=== PATIENT | male | born 1990 | race African-American/Black ===

== ENCOUNTER 2018-10-31 20:47 | Emergency (ER) | payer OTHER ==
[~2018-10-31] VITALS: Ht 170.2 cm; Wt 56.8 kg
[2018-10-31 21:16] VITALS: Ht 170.2 cm; Wt 56.8 kg
[2018-10-31] MEDS ORDERED: TAMIFLU75 MG PO (22:42)
[2018-10-31] MEDS ORDERED: VOLTAREN75 MG PO (22:42)
[2018-10-31] MEDS ORDERED: PHENERGAN DM SYR5 ML PO (22:42)
[2018-10-31 22:47] VITALS: BP 121/79
== END 2018-10-31 22:52 | disposition home or self-care (01) ==
LOC: D.ER 20:47
DX: J09.X2 Influenza due to identified novel influenza A virus with other respiratory manifestations (principal); R50.9 Fever, unspecified

== ENCOUNTER 2018-11-06 19:51 | Emergency (ER) | payer OTHER ==
[~2018-11-06] VITALS: Ht 170.2 cm; Wt 65.9 kg
[~2018-11-06 19:51] MED LIST: PHENERGAN DM SYR5 ML PO; TAMIFLU75 MG PO; VOLTAREN75 MG PO
[2018-11-06 20:16] VITALS: Ht 170.2 cm; Wt 65.9 kg
[2018-11-06 21:47] VITALS: BP 123/85
== END 2018-11-06 21:47 | disposition home or self-care (01) ==
LOC: D.ER 19:51
DX: J11.1 Influenza due to unidentified influenza virus with other respiratory manifestations (principal)